=== PATIENT | female | born 1935 | race Caucasian/White ===

== ENCOUNTER 2019-06-23 11:36 | Observation (INO) | payer OTHER ==
[~2019-06-23] VITALS: Ht 162.6 cm; Wt 54.4 kg
[2019-06-23 11:58] VITALS: Ht 162.6 cm; Wt 54.4 kg
[2019-06-23 12:25] LABS: BASOPHIL % 1.4 % (0-2); RED CELL DISTRIBUTION WIDTH 13.7 % (11.5-14.5)
[2019-06-23 12:34] LABS: PLATELET COUNT 413 x10^3mcL (130-400)
[2019-06-23 12:42] LABS: CALCIUM 8.8 mg/dL (8.5-10.1); CARBON DIOXIDE 24.6 mmol/L (21-32); CHLORIDE SERUM 96 mmol/L (98-107); CREATININE SERUM 0.9 mg/dL (0.6-1.0); GLUCOSE SERUM 119 mg/dL (74-106); POTASSIUM SERUM 4.3 mmol/L (3.5-5.1); SODIUM SERUM 127 mmol/L (136-145)
[2019-06-23 12:47] LABS: ALKALINE PHOSPHATASE 570 U/L (46-116); ALT/SGPT 16 U/L (14-59); AST/SGOT 55 U/L (15-37)
[2019-06-23 12:48] LABS: ALBUMIN 2.6 g/dL (3.4-5.0)
[2019-06-23 13:41] LABS: microscopic required? YES; urine erythrocyte NEGATIVE (NEGATIVE)
[2019-06-23 14:48] VITALS: BP 146/72
[2019-06-23] MEDS ORDERED: RYTARY1 CE1 PO (15:10)
[2019-06-23] MEDS ORDERED: LANOXIN0.125 MG PO (15:11)
[2019-06-23] MEDS ORDERED: DILTIAZEM HCL120 M2 PO (15:11)
[2019-06-23] MEDS ORDERED: GLIPIZIDE10 M3 PO (15:12)
[2019-06-23] MEDS ORDERED: DORZOLAMIDE HCL10 ML OU (15:12)
[2019-06-23] MEDS ORDERED: ACULAR LS5 ML OP (15:13)
[2019-06-23] MEDS ORDERED: ZESTRIL5 MG PO (15:14)
[2019-06-23] MEDS ORDERED: ALTOPREV40 M2 PO (15:14)
[2019-06-23] MEDS ORDERED: FORTAMET500 M1 PO (15:15)
[2019-06-23] MEDS ORDERED: LUMIGAN2.5 M1 OU (15:15)
[2019-06-23] MEDS ORDERED: MURO-12815 M1 OU (15:16)
[2019-06-23] MEDS ORDERED: OCU OS (15:16)
[2019-06-23] MEDS ORDERED: PREOS OS (15:19)
[2019-06-23] MEDS ORDERED: COU2.5 PO (15:25)
[2019-06-23] MEDS ORDERED: COU5 PO (15:28)
[2019-06-23] MEDS ORDERED: CARBIDOPA AND L1 TER PO (15:32)
[2019-06-23 20:58] VITALS: BP 134/56
[2019-06-24 05:39] LABS: CARBON DIOXIDE 25.8 mmol/L (21-32); CHLORIDE SERUM 97 mmol/L (98-107); GLUCOSE SERUM 253 mg/dL (74-106); MAGNESIUM 1.7 mg/dL (1.8-2.4); SODIUM SERUM 130 mmol/L (136-145)
[2019-06-24 06:12] VITALS: BP 136/60
[2019-06-24 08:59] VITALS: BP 134/62
[2019-06-24 13:13] VITALS: BP 134/47
[2019-06-24 15:14] VITALS: BP 134/47
== END 2019-06-24 15:55 | disposition home or self-care (01) ==
LOC: ED 11:36 → DU 13:29
PROVIDERS: Emergency Medicine; ADMIT Hospitalist
DX: E11.649 Type 2 diabetes mellitus with hypoglycemia without coma (principal); R41.82 Altered mental status, unspecified; I10 Essential (primary) hypertension; I48.91 Unspecified atrial fibrillation; G20 Parkinson's disease; T46.0X5A Adverse effect of cardiac-stimulant glycosides and drugs of similar action, initial encounter; Y92.89 Other specified places as the place of occurrence of the external cause
CPT/HCPCS: 82962; G0378; J7042; P9047